=== PATIENT | female | born 1960 | race Caucasian/White ===

== ENCOUNTER 2016-07-30 02:38 | Emergency (ER) | payer MEDICARE, MEDICAID ==
[~2016-07-30 02:38] MED LIST: AUGMENTIN875 MG PO; CARISOPRODOL350 MG PO; ELAVIL-DPS100 MG PO; ELAVIL-DPS25 MG PO; GABAPENTIN600 MG PO; LASIX DPS20 MG PO; LOPRESSOR50 MG PO; MIRALAX DPS17 GM PO; NEXIUM40 MG PO; TYLENOL EXTRA500 MG PO; ULTRAM DPS50 MG PO; VALIUM-DPS5 MG PO; VIBRAMYCIN-DPS100 M2 PO; VITAMIN D3400 UNIT PO
--- NOTE | 2016-07-31 01:40 | ER ---
ADMIT: 07/30/2016 RM/LOC: ER [facility] MR#: [id number] [address] [address] DANIEL ADKINS [address] [place] [address] Emergency Room Report SEX: F AGE: 56 : 1960 DATE: 07/30/2016 See T-sheet for complete H and P. ADDENDUM: A 56-year-old female, comes in with nausea, no BM for 5 days, and abdominal cramping. On physical exam, she is quite anxious and uncomfortable, but she does not appear to be in any distress. She does have active bowel sounds, her abdomen is soft, but tender throughout. A single-plate abdomen x- ray was done, which I did not see any acute findings. A urinalysis was also done and shows no acute findings. While in the ER, the patient did receive Zofran followed by Phenergan and a glycerin suppository. She had a large BM while in the ER, feeling much better. She will be discharged home with diagnosis of constipation, and she is to follow up with Dr. Pereira. Michel uBrgos MD/ holly JOB #: [id number] CC: Michel Burgos MD, Attending Physician Ed Pereira MD, Family Physician
[2016-09-01] MEDS ORDERED: MAPAP PM (TYLEN1 TAB PO (14:34)
[2016-09-01] MEDS ORDERED: DULCOLAX-DPS5 MG PO (14:34)
[2016-09-01] MEDS ORDERED: BACTRIM DS DPS1 TAB PO (14:35)
[2016-09-01] MEDS ORDERED: ZOFRAN8 MG PO (14:36)
[2016-09-01] MEDS ORDERED: ULTRAM DPS50 MG PO (14:37)
[2016-09-01] MEDS ORDERED: KEFLEX-DPS500 MG OP (14:37)
[2016-09-01] MEDS ORDERED: PROTONIX40 MG PO (14:37)
== END 2016-07-30 05:00 | disposition home or self-care (01) ==
LOC: ER 02:38
DX: K59.00 Constipation, unspecified (principal); R10.84 Generalized abdominal pain; I10 Essential (primary) hypertension; Z90.710 Acquired absence of both cervix and uterus; Z79.899 Other long term (current) drug therapy

== ENCOUNTER 2016-08-16 04:34 | Emergency (ER) | payer MEDICARE, MEDICAID ==
--- NOTE | 2016-08-16 07:20 | ER ---
ADMIT: 08/16/2016 RM/LOC: ER [facility] MR#: [id number] [address] [facility] [id number] [place], [place] [address] DANIEL ADKINS [address] [place] [address] Emergency Room Report SEX: F AGE: 56 : 1960 DATE: 08/16/2016 The patient is a 56-year-old female, who was bit by her estranged 's tomcat when she left the bathroom tonight, transported herself for evaluation, has had the previous hospitalization for cellulitis from a cat bite on her arm several months ago. The patient has undergone panniculectomy in the interim and has Jose-Ho drain still in her wounds. Tetanus is up-to-date. Exam remarkable for 3 irregular lacerations of left lower leg totaling 15 cm. No foreign body noted. X-ray confirmed. Wound anesthetized, scrubbed with Hibiclens, thoroughly irrigated, explored and closed with 13 modified vertical mattress sutures, bacitracin, and dressing. A 2 g Rocephin IM, Augmentin 875 b.i.d. x10 days. Covered with Bactroban t.i.d. for 7 days. Follow up with Dr. Pereira this week. Beau Zayas MD/ holly JOB #: [id number] CC: Beau Zayas MD, Attending Physician Ed Pereira MD, Family Physician Ed Pereira MD
[2016-09-01] MEDS ORDERED: DULCOLAX-DPS5 MG PO (14:34)
[2016-09-01] MEDS ORDERED: MAPAP PM (TYLEN1 TAB PO (14:34)
[2016-09-01] MEDS ORDERED: BACTRIM DS DPS1 TAB PO (14:35)
[2016-09-01] MEDS ORDERED: ZOFRAN8 MG PO (14:36)
[2016-09-01] MEDS ORDERED: KEFLEX-DPS500 MG OP (14:37)
[2016-09-01] MEDS ORDERED: PROTONIX40 MG PO (14:37)
[2016-09-01] MEDS ORDERED: ULTRAM DPS50 MG PO (14:37)
== END 2016-08-16 07:05 | disposition home or self-care (01) ==
LOC: ER 04:34
PROC: 0HQLXZZ Repair Left Lower Leg Skin, External Approach (ICD-10-PCS; principal; 2016-08-16)
DX: S81.852A Open bite, left lower leg, initial encounter (principal); I10 Essential (primary) hypertension; F25.9 Schizoaffective disorder, unspecified; F41.9 Anxiety disorder, unspecified; Z90.89 Acquired absence of other organs; Z98.890 Other specified postprocedural states; Z88.5 Allergy status to narcotic agent; Z88.6 Allergy status to analgesic agent; W55.01XA Bitten by cat, initial encounter; Y92.009 Unspecified place in unspecified non-institutional (private) residence as the place of occurrence of the external cause

== ENCOUNTER 2016-08-18 12:25 | Emergency (ER) | payer MEDICARE, MEDICAID ==
[2016-09-01] MEDS ORDERED: DULCOLAX-DPS5 MG PO (14:34)
[2016-09-01] MEDS ORDERED: MAPAP PM (TYLEN1 TAB PO (14:34)
[2016-09-01] MEDS ORDERED: BACTRIM DS DPS1 TAB PO (14:35)
[2016-09-01] MEDS ORDERED: ZOFRAN8 MG PO (14:36)
[2016-09-01] MEDS ORDERED: ULTRAM DPS50 MG PO (14:37)
[2016-09-01] MEDS ORDERED: PROTONIX40 MG PO (14:37)
[2016-09-01] MEDS ORDERED: KEFLEX-DPS500 MG OP (14:37)
--- NOTE | 2016-09-22 09:23 | ER ---
ADMIT: 08/18/2016 RM/LOC: ER [facility] MR#: [id number] [address] [facility] [address] [place] [id number] DANIEL ADKINS [address] [facility] [address] [place] [address] Emergency Room Report SEX: F AGE: 56 : 1960 DATE: 08/18/2016 ADDENDUM: This patient comes to the ER for having pain on the left leg. She accidentally closed a door on her leg. She has a laceration to her left lower leg below the knee. The area was cleaned by the nurse. I used lidocaine with epi and placed 4 stitches using 4-0 Prolene. Stitches are to be removed in 7 days. Follow up with Dr. Pereira's as needed. Please see my T-sheet. DEACON Watson / Michel Burgos MD / holly JOB #: [id number] CC: Michel Burgos MD, Attending Physician Ed Pereira MD, Family Physician
== END 2016-08-18 14:30 | disposition home or self-care (01) ==
LOC: ER 12:25
PROC: 0HQLXZZ Repair Left Lower Leg Skin, External Approach (ICD-10-PCS; principal; 2016-08-18)
DX: S81.812A Laceration without foreign body, left lower leg, initial encounter (principal); I10 Essential (primary) hypertension; W22.8XXA Striking against or struck by other objects, initial encounter

== ENCOUNTER 2016-08-19 02:54 | Emergency (ER) | payer MEDICARE, MEDICAID ==
--- NOTE | 2016-08-19 14:56 | NUR ---
Pt triggered as a high ED user. Attempted to contact pt. No answer, voice mail message left.
--- NOTE | 2016-08-22 12:32 | NUR ---
Attempted to contact pt. No answer, voice mail message left.
--- NOTE | 2016-08-23 07:33 | ER ---
ADMIT: 08/19/2016 RM/LOC: ER [facility] MR#: [id number] [address] [facility] [address] [place], [place] [address] DANIEL ADKINS [address] [place] [address] Emergency Room Report SEX: F AGE: 56 : 1960 DATE: 08/19/2016 TIME: 02:54. Please refer to my T-sheet for complete H and P. HISTORY OF PRESENT ILLNESS: Briefly, the patient is a 56-year-old who comes in with a cat bite that happened 5 days ago. She actually was seen in the ER. She was sutured at that time. She has talked to Animal Control. Her cat shots were up-to-date. She then bumped her leg on a car door and caught it on the same leg in the interim and had stitch there. She has been on Augmentin. She says the swelling has gotten little worse. She wanted it checked out. No fevers. No chills. The redness is not that severe she thinks yet. PHYSICAL EXAMINATION: VITAL SIGNS: Stable. She is afebrile. EXTREMITIES: Her left leg has 3 laceration areas, 2 from the cat bite and 1 from the car door on the lower leg. She has some significant swelling around there, but there is a little trace of erythema, but no evidence of severe cellulitis and no drainage. She is neurovascularly intact distally. EMERGENCY DEPARTMENT COURSE: I talked to her about elevating it, keeping it clean. Continue the Augmentin. I am going to add Keflex at this time. I gave her first dose here. ASSESSMENT: Left leg status post cat bite and car door, needing sutures x2 over the last week with swelling now and no evidence of severe cellulitis, although some erythema. PLAN: We are going to add Keflex as she has passed the stage of where Pasteurella normally is an issue, and she is still on the Augmentin. Elevate. Follow up with Randall next week, early return if worse or problems. Bryan Robles MD/ holly JOB #: [id number] CC: Bryan Robles MD, Attending Physician Ed Pereira MD, Family Physician
[2016-09-01] MEDS ORDERED: MAPAP PM (TYLEN1 TAB PO (14:34)
[2016-09-01] MEDS ORDERED: DULCOLAX-DPS5 MG PO (14:34)
[2016-09-01] MEDS ORDERED: BACTRIM DS DPS1 TAB PO (14:35)
[2016-09-01] MEDS ORDERED: ZOFRAN8 MG PO (14:36)
[2016-09-01] MEDS ORDERED: ULTRAM DPS50 MG PO (14:37)
[2016-09-01] MEDS ORDERED: KEFLEX-DPS500 MG OP (14:37)
[2016-09-01] MEDS ORDERED: PROTONIX40 MG PO (14:37)
== END 2016-08-19 03:16 | disposition home or self-care (01) ==
LOC: ER 02:54
DX: S81.852D Open bite, left lower leg, subsequent encounter (principal); F17.210 Nicotine dependence, cigarettes, uncomplicated; I10 Essential (primary) hypertension; Z90.89 Acquired absence of other organs; Z88.1 Allergy status to other antibiotic agents; Z88.6 Allergy status to analgesic agent; Z88.8 Allergy status to other drugs, medicaments and biological substances; Z79.899 Other long term (current) drug therapy; W55.01XD Bitten by cat, subsequent encounter; W23.0XXD Caught, crushed, jammed, or pinched between moving objects, subsequent encounter

== ENCOUNTER 2016-08-29 15:27 | Inpatient (IN) | payer MEDICARE, MEDICAID ==
[~2016-08-29] VITALS: Ht 165.1 cm; Wt 89.7 kg
[2016-09-01] MEDS ORDERED: MAPAP PM (TYLEN1 TAB PO (14:34)
[2016-09-01] MEDS ORDERED: DULCOLAX-DPS5 MG PO (14:34)
[2016-09-01] MEDS ORDERED: BACTRIM DS DPS1 TAB PO (14:35)
[2016-09-01] MEDS ORDERED: ZOFRAN8 MG PO (14:36)
[2016-09-01] MEDS ORDERED: KEFLEX-DPS500 MG OP (14:37)
[2016-09-01] MEDS ORDERED: ULTRAM DPS50 MG PO (14:37)
[2016-09-01] MEDS ORDERED: PROTONIX40 MG PO (14:37)
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
--- NOTE | 2016-09-14 17:51 | DS ---
ADMIT: 08/29/2016 RM/LOC: 619 [facility] MR#: [id number] [facility]#: [id number] 2620 [facility] [address] [place] [phone] DANIEL ADKINS [address] [facility] [address] [place] [address] Discharge Summary SEX: F AGE: 56 : 1960 ADMISSION DATE: 08/29/2016 DISCHARGE DATE: 08/31/2016 CONSULTATIONS: Wound Care. FINAL DIAGNOSES: 1. Cellulitis. 2. Cat bite. REASON FOR ADMISSION: Please see H and P. However, briefly, she is admitted for cellulitis secondary to cat bite. Refractory to outpatient treatment. HOSPITAL COURSE: Admitted to the service of [facility] under the care of myself, Ed Pereira MD. Receives IV antibiotic therapy and wound care. Improves nicely throughout her hospitalization. She discharges to home. DISPOSITION: Home. DISCHARGE CONDITION: Stable. DISCHARGE MEDICATIONS: See medication reconciliation, it is reviewed and accurate. DISCHARGE INSTRUCTIONS: Discharge to home to complete oral antibiotic therapy. Follow up with myself in one weeks' time. Continue wound care. I discussed this plan with the patient, expressed understanding, she was in agreement, and had no further questions. Thirty minutes spent on discharge activities of this patient. Ed Pereira MD/ jose a JOB #: [id number] CC: Ed Pereira MD, Attending Physician Ed Pereira MD, Family Physician
== END 2016-08-31 12:37 | disposition home or self-care (01) | DRG 603 ==
LOC: 4PCU 15:27 → 6PED 15:27
PROVIDERS: ADMIT Internal Medicine
DX: L03.116 Cellulitis of left lower limb (principal); F25.9 Schizoaffective disorder, unspecified; I10 Essential (primary) hypertension; M79.7 Fibromyalgia; F17.210 Nicotine dependence, cigarettes, uncomplicated; S81.812A Laceration without foreign body, left lower leg, initial encounter; K21.9 Gastro-esophageal reflux disease without esophagitis; M19.90 Unspecified osteoarthritis, unspecified site; W55.01XA Bitten by cat, initial encounter; Z98.890 Other specified postprocedural states